=== PATIENT | female | born 1970 | race Caucasian/White ===

== ENCOUNTER 2017-06-02 02:16 | Observation (INO) ==
[2017-06-02] MEDS ORDERED: Ondansetron 4 MG/2 ML VIAL IVP PRN (04:41)
[2017-06-02] MEDS ORDERED: *HR* Morphine 2 MG/ML SYRINGE IVP PRN (04:41)
[2017-06-02] MEDS ORDERED: Acetaminophen 325 MG TABLET PO PRN (04:41)
[2017-06-02] MEDS ORDERED: Naloxone 0.4 MG/ML INJ IVP PRN (04:41)
--- NOTE | 2017-06-02 04:56 | Internal Med History&Physical ---
<EliecerrasnikitaHuber Olson - Last Filed: 06/02/17 04:49> Date of Encounter: 06/02/17 Time of Encounter: 04:50 Assessment and Plan (1) Chest pain Current visit: Yes Status: Acute 47-year-old female who is a daily smoker developed new onset left-sided chest pressure that radiated from the shoulder initially down through substernal region. She denies exacerbation with activity, did not take any alleviating factors and did not improve with rest at the pain started and continued with rest. - Appears to be noncardiac though the patient did have an episode of syncope yesterday which is more concerning for cardiac nature. - EKG was normal sinus rhythm, troponin was 0.01 - May be related to patient's GERD, need to rule out cardiac causes. Plan: - manager of project management - Lipid panel - Troponins 3 - Aspirin 81 mg - Statin - Stress test Qualifiers: Chest pain type: unspecified Qualified Code(s): R07.9 - Chest pain, unspecified (2) Depression Current visit: Yes Status: Acute Patient has known history of depression, she takes Paxil 20 mg by mouth daily and BuSpar 10 mg by mouth 3 times a day - Continue home medications. Qualifiers: Depression Type: major depressive disorder Qualified Code(s): F32.9 - Major depressive disorder, single episode, unspecified (3) Urinary tract infection Current visit: Yes Status: Acute Patient diagnosis of urinary tract infection, has leukocyte Estrace positive urinalysis, elevated WBC counts and syncopal episode yesterday. - UTI is non-complicated. Plan: - Continue nitrofurantoin 100 mg by mouth twice a day Qualifiers: Qualified Code(s): N39.0 - Urinary tract infection, site not specified (4) Acute kidney injury Current visit: Yes Status: Acute Acute kidney injury with elevation of creatinine to 1.28. This is likely secondary to urinary tract infection and dehydration. Plan: - IV fluids 100 mL's per hour - Treat urinary tract infection - Avoid nephrotoxic medications. Internal Medicine - H&P: HPI Chief complaint: Chest pain Admitted From: Hospital to Hospital Transfer Plans for Post Hospital Care: Home History of present illness: Ms. Williamson is a 47 year old female significant for history of daily smoking and depression presents to [facility] emergency department with chest discomfort this evening around 10 PM. Patient states that she was sitting at home watching a movie when she developed a left shoulder pain that radiated down into her left upper chest and then substernally feeling as if somebody was squeezing her esophagus. She states that the symptoms stayed constant until she went to the emergency department. She denies ever having symptoms like this before. She does not know if it is exacerbated with activity but does know that she had it at rest. She had not taken any aspirin or Tylenol prior to arriving at the emergency department. She did however take a Prilosec thinking that this may be acid reflux. She does have a recent history of H. pylori for which she was taking antibiotics for curative therapy. She also was diagnosed with a urinary tract infection today. Of note she said that yesterday she was standing in line at the gas station because she was not feeling so great and went to grab a stack while standing in line she blacked out and woke up on the floor. She is unsure if she had hit her head but says that she does not have any head pains since the incident. She does however have pain on her gluteus ron for which she said she believes she landed on her butt first. She denies any postictal-like symptoms after waking up on the floor. That ends in prompt her to see her physician for which she was treated with for a urinary tract infection. She said she was prescribed antibiotics today but had not taken them yet. She says she does not have the chest pain currently after she received aspirin and nitroglycerin strep. However since receiving the nitroglycerin she does have a headache. She denies any risk factors such as hyperlipidemia, hypertension, coronary artery disease, however she is a daily smoker smoking 1.5 packs per day for 3 years. She started smoking 3 years ago after a divorce. Past Med Surg Social Fam HX - Past Medical History Medical history: arthritis, asthma, GERD Psychiatric history: anxiety, depression - Past Surgical History Surgical History: other - Social History Smoking Status: Current every day smoker Smokeless Tobacco Status: No Alcohol use: none Drug use: none Internal Medicine - H&P: Meds Paroxetine HCl [Paxil] 20 mg PO DAILY 10/18/16 [History] Buspirone HCl [Buspar] 10 mg PO TID 01/21/17 [History] Omeprazole [PriLOSEC] 20 mg PO DAILY 06/01/17 [History] Nitrofurantoin (BID) [Macrobid] 100 mg PO BID 06/02/17 [History] Allergies No Known Allergies Allergy (Verified 06/01/17 23:18) All Systems PM: A 10-system review of systems was performed and is negative for pertinent findings except as documented above in the HPI. - Constitutional Constitutional: no chills, no fever(s), no night sweats - EENT Eyes: no change in vision, no discharge, no pain, no photophobia Ears: no ear discharge, no ear pain, no tinnitus Nose, mouth and throat: no dysphagia, no nasal discharge, no neck pain, no sore throat - Cardiovascular Cardiovascular ROS IM: chest pain, syncope (One episode), no diaphoresis, no dyspnea, no lightheadedness, no palpitations - Respiratory Respiratory: no cough, no dyspnea, no wheezing, no excessive phlegm production - Gastrointestinal Gastrointestinal: no abdominal pain, no diarrhea, no hematemesis, no hematochezia, no melena, no nausea, no vomiting - Genitourinary Genitourinary: no change in urinary stream, no dysuria, no flank pain, no hematuria - Musculoskeletal Musculoskeletal ROS IM: no numbness, no tingling - Integumentary Integumentary IM: no rash, no unusual bruising - Neurological Neurological ROS: no confusion, no convulsions, no focal weakness, no numbness, no tingling, no tremor(s) - Hematologic/Lymphatic Hematologic/Lymphatic: no easy bruising - Constitutional Vitals: Temp Pulse Resp BP Pulse Ox 97.8 F 76 16 113/77 97 06/02/17 03:54 06/02/17 03:54 06/02/17 03:54 06/02/17 03:54 06/02/17 03:54 General appearance: Present: cooperative, A&O X 3, pleasant, no acute distress Exam: General: Patient alert, awake, oriented 3, interactive, in no acute distress HEENT: Normocephalic, atraumatic, pupils equal reactive to light, nasal cavity patent and open septum median position, oral mucosa moist, uvula midline, neck supple trachea midline no palpable lymphadenopathy, no thyromegaly. Chest: Symmetric bilateral correlating with respiratory effort, effort nonlabored. Cardiac: Regular rate and rhythm, positive S1 and S2. no bruits appreciated bilateral carotids, Radial pulses 2+ bilateral, posterior tibial and dorsal pedal pulses 2+ bilateral. Respiratory: Clear to auscultation all lung fatima Abdomen: Soft, nontender, positive bowel sounds, no palpable masses appreciated on examination Extremities: Symmetric bilateral, bilateral lower extremities without erythema or edema patient moving all 4 extremities spontaneously. Neurologic: No focal deficits appreciated on examination. Face symmetric, muscle strength symmetric bilateral upper and lower extremities. <Bob-Oswald Knowles - Last Filed: 06/02/17 06:03> Date of Encounter: 06/02/17 Internal Medicine - H&P: HPI History of present illness: Ms. Williamson is a 47 year old female All Systems PM: A 10-system review of systems was performed and is negative for pertinent findings except as documented above in the HPI. - Constitutional Vitals: Temp Pulse Resp BP Pulse Ox 97.8 F 76 16 113/77 97 06/02/17 03:54 06/02/17 03:54 06/02/17 03:54 06/02/17 03:54 06/02/17 03:54 - Attending Attestation I have seen and examined the patient. I have discussed about the patient with Dr. Larson. I have reviewed the orders and note. Patient is a 47 y/o female with PMH of depression, GERD and asthma. She presents as a transfer from [facility] ED. She initially presented to the ED with complaints of chest pain that started a few hours ago. She initially thought this was due to her reflux disease. Patient was also diagnosed with a UTI today, and was started on Nitrofurantoin. She had a syncopal episode as well earlier today. She is asymptomatic at present. Patient admits to smoking about 1 ppd. She is being admitted for chest pain to r/o ACS. Initial EKG shows NSR with no acute ST-T changes. Troponin will be trended. Echocardiogram and stress test pending. Patient has been explained about her condition and plan of care. Understood and agreed. No unanswered questions. Code status: full code.
[2017-06-02] MEDS ORDERED: Regadenoson 0.4 MG/5 ML SYRINGE IVP ONE (05:55)
[2017-06-02 06:03] LABS: Basophils # 0.1 K/mcL (0.0-0.2); Basophils % 0.5 %; Eosinophils # 0.5 K/mcL (0.0-0.6); Eosinophils % 4.6 %; Hematocrit 43.5 % (35.3-44.9); Hemoglobin 14.6 g/dL (11.5-15.4); Immature Granulocytes % 0.5 % (0-4); Lymphocytes # 4.3 K/mcL (0.6-4.6); Lymphocytes % 38.2 %; Mean Corpuscular HGB Conc 33.6 g/dL (31.6-35.5); Mean Corpuscular Hemoglobin 30.2 pg (28.0-33.3); Mean Corpuscular Volume 89.9 fL (83.0-100.0); Mean Platelet Volume 9.4 fL (9.4-12.4); Monocytes # 0.9 K/mcL (0.0-1.3); Monocytes % 7.9 %; Neutrophils # 5.4 K/mcL (1.6-8.9); Platelet Count 292 K/mcL (140-400); Red Blood Count 4.84 M/mcL (3.82-4.97); Red Cell Distribution Width 12.7 % (11.5-14.5); Segmented Neutrophils % 48.3 %
[2017-06-02 06:15] LABS: BUN/Creatinine Ratio 14 (6-26); Blood Urea Nitrogen 13 mg/dL (7-20); Calcium 8.4 mg/dL (8.6-10.8); Carbon Dioxide 27 mEq/L (19-29); Chloride 103 mEq/L (98-109); Glucose 96 mg/dL (70-99); Magnesium 2.4 mg/dL (1.6-2.6); Osmolality,Calculated 286 (280-300); Sodium 138 mEq/L (136-145); eGFR For African Americans > 60 (> 60); eGFR For Non-African Americans > 60 (> 60)
[2017-06-02 06:16] LABS: Potassium 3.4 mEq/L (3.5-4.5)
[2017-06-02] MEDS ORDERED: Aspirin 81 MG TAB.CHEW PO SCH (09:00)
[2017-06-02] MEDS ORDERED: Nicotine 21 MG PATCH.TD24 TD SCH (09:00)
[2017-06-02] MEDS ORDERED: Famotidine 20 MG TABLET PO SCH (09:00)
[2017-06-02] MEDS ORDERED: Nitrofurantoin (BID) 100 MG CAPSULE PO SCH (09:00)
--- NOTE | 2017-06-02 13:10 | Nuclear Medicine Stress Report ---
Regadenoson Nuclear 2 day Name: Bernadette Williamson Date of Study: 06/02/2017 Date: 1970 Ht: 64.0 in Medical Record#: [id number] Age: 47 Wt: 205.0 lb Gender: Female Order #: [id number] Location: [facility] Room: [facility] Supervising Provider: Ledy Rivero CNP Reading Physician: Aura Rivera DO Ordering Physician: Marie Metzger CNP Primary Care Physician: Krystin Dickerson CNP Stress Technologist: Argenis Worthington, MALINDA,CPFT Crystalizer Operator: Jerome Moya Indications: Chest Pain Impression: Perfusion imaging was negative for ischemia or infarct. Pharmacologic ECG was negative for ischemia at the level of heart rate achieved. Gated EF = 70%. History: Hypercholesteremia History of Smoking Stress Test Summary: Stress Test Type: Pharmacologic Regadenoson 0.4mg/5ml given IV Baseline Information: Initial Heart Rate: 61 Blood Pressure: 110/80 Stress Information: Test Terminated Due to (primary): As per protocol Maximum Blood Pressure: 112/62 Maximum Heart Rate: 107 Percent Maximum Heart Rate Achieved: 61 Double Product: [id number] METS Reached: 1 Symptoms: No chest symptoms Nuclear Summary: SPECT myocardial perfusion imaging using Tc99m Sestamibi given intravenously was performed at rest and following cardiac stress testing. The resting images were obtained following initial dose of 11.0 mCi. Following stress an additional dose of 35.5 mCi was given at peak exercise or 30 seconds post regadenoson infusion. Medication Given: Time Medication Dose Units Route Findings: Stress Note * Resting ECG demonstrated normal sinus rhythm. * Pharmacologic stress ECG is negative for ischemia at level of heart rate achieved. * No arrhythmias were noted during stress. * Patient had no chest pain during stress. Hemodynamic responses * Normal hemodynamic responses to pharmacologic stress. Study Quality * Study quality is good. Gated EF % * Gated EF = 70%. Left Ventricle * The left ventricle is not dilated. NORMALS * Normal wall motion. * Normal segmental perfusion in stress. * Normal Segmental Perfusion in rest. TID * No evidence of transient ischemic dilatation. Lung Uptake * There is no evidence of increase lung uptake. Updated by Aura Rivera on 06/02/2017 1:04:06 PM electronically signed on 06/02/2017 1:04:25 PM with status of Final
[2017-06-02 15:10] VITALS: BP 118/82
--- NOTE | 2017-06-02 15:18 | Discharge Summary ---
Date of Encounter: 06/02/17 Time of Encounter: 13:30 - Discharge Diagnosis (1) Chest pain Priority: Primary Status: Acute Comments: Patient reports that she began having chest pain at rest last night at home. She said it began in her left shoulder then radiated to her left chest. She said at the peak of the pain she had nausea and shortness of breath. She denies any diaphoresis. She said it was an 8/10 at its worst. She said it lasted 3-4 hours until she was in the emergency department in the nitro paste was applied. She said she has had no chest pain since 3 AM. Has never had anything like this before. She denied anything that worsened the chest pain. Her lungs are clear. She is tender in the epigastric area. Pain is not reproducible with palpation. Troponins were negative. Stress test was negative for ischemia or infarct, gated EF was 70%. Echocardiogram, LVEF 60% with normal systolic function, mild diastolic dysfunction, no pulmonary hypertension or significant valvular dysfunction, all wall segments showed normal motion. Chest x-ray last night showed no acute process. I believe this is most likely pain from GERD. Patient had a scope by Dr. Polk in October, that showed small hiatal hernia and erythematous changes to the gastric body consistent with gastritis. The antrum and the duodenum appeared to be erythematous. Epigastric area is tender to palpation. She will continue her home medications and she can follow-up with primary care for further evaluation and scope if necessary. Qualifiers: Chest pain type: unspecified Qualified Code(s): R07.9 - Chest pain, unspecified (2) Acute kidney injury Priority: Secondary Status: Resolved Comments: Creatinine has returned to normal, 0.95, GFR is 60. (3) Depression Priority: Secondary Status: Chronic Comments: Chronic. Continue home medications. Qualifiers: Depression Type: major depressive disorder Qualified Code(s): F32.9 - Major depressive disorder, single episode, unspecified (4) Urinary tract infection Priority: Secondary Status: Acute Comments: Patient was diagnosed with urinary tract infection. She was seen her primary care office yesterday for syncopal episode and diagnosed with urinary tract infection. She will continue her Macrobid 100 mg by mouth twice a day. She already has a prescription. Qualifiers: Urinary tract infection type: acute cystitis Hematuria presence: without hematuria Qualified Code(s): N30.00 - Acute cystitis without hematuria - Discharge Medications Prescriptions: Omeprazole [PriLOSEC] 20 mg PO DAILY #30 cap Home Medications: Buspirone HCl [Buspar] 10 mg PO TID 01/21/17 [History] Omeprazole [PriLOSEC] 20 mg PO DAILY 06/01/17 [History] Albuterol Sulfate [Ventolin Hfa] 2 puff IH Q4H PRN 06/02/17 [History] Ciprofloxacin HCl [Cipro] 500 mg PO BID 06/02/17 [History] Nitrofurantoin (BID) [Macrobid] 100 mg PO BID 06/02/17 [History] Omeprazole [PriLOSEC] 20 mg PO DAILY #30 cap 06/02/17 [Rx] Paroxetine [Paxil] 30 mg PO DAILY 06/02/17 [History] Allergies/Adverse Reactions: Allergies No Known Allergies Allergy (Verified 06/02/17 07:32) Procedures/tests Complete & Pending: Procedures Performed prior 72 hours Category Date Time Status NM andrew perf SPECT multi [NM] Routine Exams 06/02/17 04:46 Taken ECG 12 lead ECG [ECG] AM 0600 Y 06/02/17 06:00 Ordered EV echocardiogram Routine Y 06/02/17 04:45 Completed SP pharm nuclear stress Routine Y 06/02/17 07:35 Completed Date of admission: 06/02/17 03:41 Primary care physician: PCP NO Discharging clinician: Marie Metzger Anticipated date of discharge: 06/02/17 - Patient Status Disposition: Home, Self-Care Condition: Good Functional capacity at discharge: independent ambulation Overall status at discharge: patient is back to baseline - Discharge Instructions Follow Up With: HE,PCP [Primary Care Provider] - Additional Instructions: Keep taking your antibiotic and drink plenty of water. Take all of the antibiotic until it is gone. \ Resume your other home medications. Follow up with your primary care provider for evaluation of possible need for change in GERD medication. Return to the ER as needed for any other problems or concerns or if your symptoms return or worsen. - Diet and Activity Activity: increase activity as tolerated Diet: advance to your usual diet Hospital course: Ms. Williamson is a 47 year old female with past medical history of depression and GERD. She had a syncopal episode and was seen at her primary care physician yesterday and diagnosed with a urinary tract infection. States she was watching TV at home last night when she began having left shoulder pain that radiated to left chest. She said she had been at rest for a long time prior to the pain starting. She reported nausea and shortness of breath denied diaphoresis. Pain lasted 3-4 hours until Nitropaste was applied in the emergency department. She is pain-free at this time. Troponins were negative. Chest x-ray was negative. Echocardiogram shows LVEF 60% with normal systolic function, mild diastolic dysfunction, no valvular dysfunction and pulmonary hypertension. All wall segments showed normal motion. Stress test was negative for ischemia or infarct. She gated EF of 70%. We discussed smoking cessation and lifestyle modification to reduce risk factors. Patient has mildly elevated white count 11.3. Most likely due to her urinary tract infection. She has no flank pain or CVA tenderness. She denies any urinary symptoms. She will continue her antibiotic home. She already has a prescription. Chest pain is not reproducible. She is tender in epigastric area. She currently takes Pepcid 20 mg by mouth twice a day. I will give her a prescription for omeprazole 20 mg daily. She has had a scope in the past that showed GERD and erythematous changes in the stomach and duodenum. She also has a small hiatal hernia. She will need to follow up with primary care for further evaluation and treatment. Vital signs stable. Patient is ready for discharge. - Time Spent with Patient Total time spent providing and/or coordinating discharge services: Less than 30 minutes - Constitutional Vitals: Temp Pulse Resp BP Pulse Ox 97.7 F 58 16 118/82 96 06/02/17 15:09 06/02/17 15:09 06/02/17 15:09 06/02/17 15:09 06/02/17 15:09 General appearance: Present: cooperative, A&O X 3, pleasant, no acute distress
== END 2017-06-02 15:53 | disposition home or self-care (01) ==
LOC: 3BNU
PROVIDERS: ADMIT Internal Medicine; ATTEND Registered Nurse